=== PATIENT | male | born 1975 | race Caucasian/White ===

== ENCOUNTER → 2016-06-25 | Outpatient (CLI) | payer BC ==
[~2016-06-25] MED LIST: MULT-506 PO; OXYC-57 PO
== END | disposition home or self-care (01) ==
LOC: C.LABSPEC 13:21
PROVIDERS: ATTEND Family Medicine
DX: G51.0 Bell's palsy (principal)

== ENCOUNTER 2016-07-20 17:20 | Emergency (ER) | payer OTHER, BC ==
[~2016-07-20] VITALS: Ht 167.6 cm; Wt 94.5 kg
[2016-07-20 17:32] VITALS: TEMP 36.5; Ht 167.6 cm; Wt 94.5 kg
[2016-07-20 17:37] VITALS: O2SAT 98
[2016-07-20 17:58] LABS: BASO % 0.1 %; BASO ABS # 0.01 K/uL (0-0.2); COMPLETE YES; EOS % 1.5 %; IG% 0.1 %; LYMPH % 22.6 %; LYMPH ABS # 1.96 K/uL (1.2-3.4); MEAN CELL VOLUME 86.1 fL (80-100); MEAN CORPUSCULAR HEMOGLOBIN 30.7 pg (25-34); MEAN CORPUSCULAR HGB CONC 35.6 g/dl (32-36); MEAN PLATELET VOLUME 9.7 fL (7.4-10.4); MONO % 5.5 %; NEUT % 70.2 %; PLATELET COUNT 245 K/uL (130-400); RED BLOOD COUNT 4.53 M/uL (4.7-6.1); WHITE BLOOD COUNT 8.68 K/uL (4.8-10.8)
[2016-07-20] MEDS ORDERED: OPTIRAY 320 IV PRN (18:00)
[2016-07-20 18:07] LABS: ISTAT HEMOGLOBIN 13.3 g/dl (14.0-18.0); ISTAT IONIZED CALCIUM 1.16 mmol/l (1.12-1.32)
[2016-07-20 18:18] LABS: BUN/CREATININE RATIO 15.6 (10-20); CALCIUM 8.9 mg/dl (8.5-10.1); CREATININE 1.1 mg/dl (0.60-1.40); POTASSIUM 3.5 mmol/L (3.5-5.1)
[2016-07-20] MEDS ORDERED: MULT-506 PO (18:19)
[2016-07-20] MEDS ORDERED: MoRPHine SULFATE 10 MG/ML CARP/VIAL IV STA (18:33)
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
[2016-07-20] MEDS ORDERED: OXYC-57 PO (19:50)
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
[2016-07-20] MEDS ORDERED: PERCOCET HOME PACK PO ONE (20:00)
[2016-07-20 20:06] VITALS: BP 103/83; PULSE 78; O2SAT 96
== END 2016-07-20 20:07 | disposition home or self-care (01) ==
LOC: EDBD 17:20 → C.EDA 17:21
DX: R51 Headache (principal); R10.12 Left upper quadrant pain; R07.9 Chest pain, unspecified; M79.605 Pain in left leg; M54.2 Cervicalgia; M25.521 Pain in right elbow; V49.49XA Driver injured in collision with other motor vehicles in traffic accident, initial encounter; Y92.410 Unspecified street and highway as the place of occurrence of the external cause; K80.20 Calculus of gallbladder without cholecystitis without obstruction

== ENCOUNTER → 2016-11-05 | Outpatient (CLI) | payer OTHER, BC ==
--- NOTE | 2016-11-05 08:39 | DIAGNOSTIC IMAGING REPORT ---
LEFT ELBOW MIN 3 VIEWS ROUTINE CLINICAL HISTORY: 41 years-old Male presenting with LEFT ELBOW PAIN. TECHNIQUE: Frontal, oblique, and lateral views of the left elbow were obtained. COMPARISON: None. FINDINGS: Elbow joint is congruent. No evidence of elbow joint effusion. No acute fracture, malalignment, or radiopaque foreign body. Soft tissues are grossly normal. IMPRESSION: 1. No acute osseous injury of the left elbow. Electronically signed by: Rick Moscoso 11/05/2016 8:38 AM Dictated Date/Time: 11/05/2016 8:36 AM
== END | disposition home or self-care (01) ==
LOC: C.RAD1850 08:26
PROVIDERS: ATTEND Nurse Practitioner Adult Health
DX: M25.522 Pain in left elbow (principal)